=== PATIENT | female | born 1995 | race Hispanic/Latino ===

== ENCOUNTER 2020-07-21 15:57 | Emergency (ER) | payer OTHER ==
[~2020-07-21] VITALS: Ht 154.9 cm; Wt 67.1 kg
[2020-07-21 19:20] VITALS: BP 106/59
== END 2020-07-21 19:20 | disposition home or self-care (01) ==
LOC: FSED 16:10
DX: O26.92 Pregnancy related conditions, unspecified, second trimester (principal); S86.812A Strain of other muscle(s) and tendon(s) at lower leg level, left leg, initial encounter; S86.811A Strain of other muscle(s) and tendon(s) at lower leg level, right leg, initial encounter
CPT/HCPCS: 93970; 99282